=== PATIENT | female | born 1950 | race Asian ===

== ENCOUNTER 2020-12-15 05:36 | Day surgery (SDC) | payer OTHER ==
[2020-12-14 10:16] VITALS: BMI 23.6
[~2020-12-15 05:36] MED LIST: LIDOCAINE HCL 1%, 10 MG/ML (20ML VIAL) SQ ONE
[2020-12-15] MEDS ORDERED: HEPARIN NA (PORCINE) 5,000 UNITS/ML 1ML VIAL ONE (07:32)
[2020-12-15] MEDS ORDERED: LIDOCAINE HCL 1%, 10 MG/ML (20ML VIAL) ONE (07:33)
[2020-12-15] MEDS ORDERED: SODIUM CHLORIDE 0.9% P/F 10 ML VIAL IJ ONE ×3 (07:43→14:00)
[2020-12-15] MEDS ORDERED: MIDAZOLAM HCL 2 MG/2 ML SINGLE DOSE VIAL ONE (07:47)
[2020-12-15] MEDS ORDERED: PROPOFOL 20 ML ONE ×5 (07:48→14:01)
[2020-12-15] MEDS ORDERED: LIDOCAINE HCL/PF 2% SDV 5ML VIAL ONE ×3 (07:50→14:00)
[2020-12-15] MEDS ORDERED: LIDOCAINE HCL 1%, 10 MG/ML (20ML VIAL) SQ ONE (09:34)
[2020-12-15] MEDS ORDERED: ceFAZolin SODIUM 1 GM VIAL ONE ×2 (09:56→14:00)
[2020-12-15] MEDS ORDERED: DEXAMETHASONE SOD PHOSPHATE 4 MG/1 ML VIAL ONE ×2 (09:56→14:00)
[2020-12-15] MEDS ORDERED: oxyCODONE HCL 5 MG TABLET PO PRN (11:33)
[2020-12-15] MEDS ORDERED: ONDANSETRON 4 MG/2 ML VIAL IVPUSH PRN (11:33)
[2020-12-15 15:51] VITALS: BP 133/62; PULSE 90; TEMP 98.2
== END 2020-12-15 13:30 | disposition home or self-care (01) ==
LOC: JASU-SURG 05:36
PROVIDERS: ATTEND Surgery
PROC: 0JH63XZ Insertion of Tunneled Vascular Access Device into Chest Subcutaneous Tissue and Fascia, Percutaneous Approach (ICD-10-PCS; principal; 2020-12-15 07:30)
DX: C50.912 Malignant neoplasm of unspecified site of left female breast (principal); E11.9 Type 2 diabetes mellitus without complications
CPT/HCPCS: 36561; C1788; 71045-TC-FY; 76000-TC-FY; 82962; 94760; J1644

== ENCOUNTER → 2020-12-16 | Day surgery (SDC) | payer OTHER ==
[~2020-12-16] MED LIST changes: +DEXAMETHASONE SODIUM PHOSPHATE 10 MG, ONDANSETRON INJECTION 8 MG, DIPHENHYDRAMINE 50 MG... IVPB ONE; +FAMOTIDINE 20 MG/50 ML IVPB 20 MG/50 ML MG IVPB ONE; -LIDOCAINE HCL 1%, 10 MG/ML (20ML VIAL) SQ ONE; +PACLITAXEL 120 MG in SODIUM CHLORIDE 250 ML IVPB ONE
[2020-12-16 09:47] LABS: BASO % 0.5 % (0-2.0); EOS % 0.6 % (0-4.5); HEMATOCRIT 36.4 % (32.4-45.2); HEMOGLOBIN 12.3 GM/dL (10.7-15.3); LYMPH % 33.9 % (8-40); MCH 29.8 pg (25.7-33.7); MCHC 33.8 g/dl (32.0-36.0); MEAN PLT VOLUME 8.2 fl (7.5-11.1); MONO % 6.7 % (3.8-10.2); NEUT % 58.3 % (42.8-82.8); PLATELET COUNT 280 K/MM3 (134-434); RBC 4.14 M/mm3 (3.60-5.2); RDW 12.6 % (11.6-15.6)
[2020-12-16 10:08] LABS: POTASSIUM 3.4 mmol/L (3.5-5.1)
[2020-12-16 10:10] LABS: ALBUMIN 3.8 g/dl (3.4-5.0); CALCIUM 9.4 mg/dL (8.5-10.1)
[2020-12-16 10:12] LABS: BLOOD UREA NITROGEN 14.2 mg/dL (7-18)
[2020-12-16 10:14] LABS: CREATININE 0.7 mg/dL (0.55-1.3)
[2020-12-16 10:15] LABS: BILIRUBIN,TOTAL 0.6 mg/dL (0.2-1); TOT PROT 7.8 g/dl (6.4-8.2)
== END | disposition home or self-care (01) ==
LOC: JONCCHEMO 07:35
PROVIDERS: ATTEND Internal Medicine Hematology & Oncology
DX: Z53.8 Procedure and treatment not carried out for other reasons (principal)
CPT/HCPCS: 36415; 80053; 85025; 96365

== ENCOUNTER 2020-12-25 04:47 | Day surgery (SDC) | payer OTHER ==
[2020-12-23 13:10] VITALS: BMI 23.0
[2020-12-25] MEDS ORDERED: SODIUM CHLORIDE 500 ML IV ONE (12:10)
[2020-12-25] MEDS ORDERED: ACETAMINOPHEN 325 MG TABLET (FP) ONE (13:29)
[2020-12-25 14:12] VITALS: TEMP 97.8
[2020-12-25 14:22] VITALS: BP 125/66; PULSE 82
== END 2020-12-25 14:15 | disposition home or self-care (01) ==
LOC: JRADIR 04:47
PROVIDERS: ATTEND Internal Medicine Hematology & Oncology
PROC: 0PB63ZX Excision of Left Scapula, Percutaneous Approach, Diagnostic (ICD-10-PCS; principal; 2020-12-25)
DX: C50.919 Malignant neoplasm of unspecified site of unspecified female breast (principal); C79.51 Secondary malignant neoplasm of bone
CPT/HCPCS: 20225; 82962; 88305-TC; 88311-TC; 88341-TC; 88342-TC

== ENCOUNTER 2021-01-15 07:24 | Day surgery (SDC) | payer OTHER ==
[2021-01-15 12:23] LABS: BASO % 0.6 % (0-2.0); EOS % 2.9 % (0-4.5); HEMATOCRIT 38.5 % (32.4-45.2); HEMOGLOBIN 12.9 GM/dL (10.7-15.3); LYMPH % 36.2 % (8-40); MCH 29.9 pg (25.7-33.7); MCHC 33.6 g/dl (32.0-36.0); MEAN CELL VOLUME 89.1 fl (80-96); MEAN PLT VOLUME 8.8 fl (7.5-11.1); MONO % 5.3 % (3.8-10.2); PLATELET COUNT 220 K/MM3 (134-434); RBC 4.32 M/mm3 (3.60-5.2); RDW 12.7 % (11.6-15.6)
[2021-01-15 12:44] LABS: BLOOD UREA NITROGEN 10.2 mg/dL (7-18); CALCIUM 8.9 mg/dL (8.5-10.1)
[2021-01-15 12:45] LABS: ALBUMIN 3.6 g/dl (3.4-5.0)
[2021-01-15 12:49] LABS: BILIRUBIN,TOTAL 0.4 mg/dL (0.2-1); CREATININE 0.6 mg/dL (0.55-1.3); TOT PROT 7.6 g/dl (6.4-8.2)
[2021-01-15] MEDS ORDERED: ONDANSETRON INJECTION 8 MG in SODIUM CHLORIDE 50 ML IVPB ONE (13:30)
[2021-01-15] MEDS ORDERED: PACLITAXEL PROTEIN BOUND IVPB ONE (14:00)
[2021-01-15] MEDS ORDERED: SODIUM CHLORIDE IVPB ONE (14:00)
[2021-01-15 15:51] VITALS: TEMP 98.4
[2021-01-15 15:54] VITALS: BP 151/68; PULSE 96
== END 2021-01-15 14:45 | disposition home or self-care (01) ==
LOC: JONCCHEMO 07:24
PROVIDERS: ATTEND Internal Medicine Hematology & Oncology
DX: Z51.11 Encounter for antineoplastic chemotherapy (principal); C50.912 Malignant neoplasm of unspecified site of left female breast
CPT/HCPCS: 36415; 80053; 85025; 86300; 96375; 96413; J9264

== ENCOUNTER 2021-01-21 07:18 | Day surgery (SDC) | payer OTHER ==
[2021-01-21] MEDS ORDERED: ONDANSETRON INJECTION 8 MG in SODIUM CHLORIDE 50 ML IVPB ONE (09:30)
[2021-01-21] MEDS ORDERED: SODIUM CHLORIDE IVPB ONE (10:00)
[2021-01-21] MEDS ORDERED: PACLITAXEL PROTEIN BOUND IVPB ONE (10:00)
[2021-01-21 10:24] LABS: BASO % 0.5 % (0-2.0); HEMATOCRIT 38.2 % (32.4-45.2); HEMOGLOBIN 12.6 GM/dL (10.7-15.3); LYMPH % 39.8 % (8-40); MCH 29.5 pg (25.7-33.7); MEAN CELL VOLUME 89.4 fl (80-96); MEAN PLT VOLUME 9.2 fl (7.5-11.1); MONO % 2.7 % (3.8-10.2); PLATELET COUNT 206 K/MM3 (134-434); RBC 4.27 M/mm3 (3.60-5.2); RDW 12.9 % (11.6-15.6)
[2021-01-21 10:49] LABS: CALCIUM 8.8 mg/dL (8.5-10.1)
[2021-01-21 10:51] LABS: ALBUMIN 3.6 g/dl (3.4-5.0); BLOOD UREA NITROGEN 13.8 mg/dL (7-18)
[2021-01-21 10:54] LABS: CREATININE 0.7 mg/dL (0.55-1.3)
[2021-01-21 10:56] LABS: TOT PROT 7.6 g/dl (6.4-8.2)
[2021-01-21 10:57] LABS: BILIRUBIN,TOTAL 0.8 mg/dL (0.2-1)
[2021-01-21 16:08] VITALS: TEMP 98
[2021-01-21 16:10] VITALS: BP 145/74; PULSE 91
== END 2021-01-21 14:44 | disposition home or self-care (01) ==
LOC: JONCCHEMO 07:18
PROVIDERS: ATTEND Internal Medicine Hematology & Oncology
DX: Z51.11 Encounter for antineoplastic chemotherapy (principal); C50.912 Malignant neoplasm of unspecified site of left female breast
CPT/HCPCS: 36415; 80053; 85025; 96375; 96413; J9264

== ENCOUNTER 2021-01-28 07:44 | Day surgery (SDC) | payer OTHER ==
[2021-01-28] MEDS ORDERED: ONDANSETRON INJECTION 8 MG in SODIUM CHLORIDE 50 ML IVPB ONE (09:30)
[2021-01-28] MEDS ORDERED: SODIUM CHLORIDE IVPB ONE (10:00)
[2021-01-28] MEDS ORDERED: PACLITAXEL PROTEIN BOUND IVPB ONE (10:00)
[2021-01-28 10:01] LABS: BASO % 0.7 % (0-2.0); EOS % 2.8 % (0-4.5); HEMATOCRIT 37.7 % (32.4-45.2); HEMOGLOBIN 12.9 GM/dL (10.7-15.3); LYMPH % 46.7 % (8-40); MCH 30.1 pg (25.7-33.7); MCHC 34.2 g/dl (32.0-36.0); MEAN CELL VOLUME 87.9 fl (80-96); MEAN PLT VOLUME 8.7 fl (7.5-11.1); MONO % 3.5 % (3.8-10.2); NEUT % 46.3 % (42.8-82.8); PLATELET COUNT 207 K/MM3 (134-434); RBC 4.29 M/mm3 (3.60-5.2); RDW 12.8 % (11.6-15.6); WHITE BLOOD COUNT 6.3 K/mm3 (4.0-10.0)
[2021-01-28 10:16] LABS: CALCIUM 8.6 mg/dL (8.5-10.1)
[2021-01-28 10:17] LABS: ALBUMIN 3.7 g/dl (3.4-5.0); BLOOD UREA NITROGEN 11.8 mg/dL (7-18)
[2021-01-28 10:20] LABS: CREATININE 0.6 mg/dL (0.55-1.3)
[2021-01-28 10:21] LABS: BILIRUBIN,TOTAL 0.4 mg/dL (0.2-1); TOT PROT 7.5 g/dl (6.4-8.2)
[2021-01-28 18:10] VITALS: PULSE 85; TEMP 98.6
[2021-01-28 18:12] VITALS: BP 146/78
== END 2021-01-28 13:45 | disposition home or self-care (01) ==
LOC: JONCCHEMO 07:44
PROVIDERS: ATTEND Internal Medicine Hematology & Oncology
DX: Z51.11 Encounter for antineoplastic chemotherapy (principal); C50.912 Malignant neoplasm of unspecified site of left female breast
CPT/HCPCS: 36415; 80053; 85025; 96375; 96413; J9264

== ENCOUNTER 2021-02-04 07:16 | Day surgery (SDC) | payer OTHER ==
[2021-02-04 11:59] LABS: BASO % 0.7 % (0-2.0); HEMATOCRIT 39.1 % (32.4-45.2); HEMOGLOBIN 13.2 GM/dL (10.7-15.3); LYMPH % 42.3 % (8-40); MCH 29.9 pg (25.7-33.7); MCHC 33.8 g/dl (32.0-36.0); MEAN CELL VOLUME 88.4 fl (80-96); MEAN PLT VOLUME 9.1 fl (7.5-11.1); MONO % 3.8 % (3.8-10.2); NEUT % 51.2 % (42.8-82.8); PLATELET COUNT 240 K/MM3 (134-434); RBC 4.42 M/mm3 (3.60-5.2); RDW 12.8 % (11.6-15.6); WHITE BLOOD COUNT 6.6 K/mm3 (4.0-10.0)
[2021-02-04 12:24] LABS: CALCIUM 8.8 mg/dL (8.5-10.1)
[2021-02-04 12:25] LABS: ALBUMIN 4.1 g/dl (3.4-5.0); BLOOD UREA NITROGEN 12.8 mg/dL (7-18)
[2021-02-04 12:27] LABS: CREATININE 0.6 mg/dL (0.55-1.3)
[2021-02-04 12:29] LABS: BILIRUBIN,TOTAL 0.4 mg/dL (0.2-1)
[2021-02-04] MEDS ORDERED: ONDANSETRON INJECTION 8 MG in SODIUM CHLORIDE 50 ML IVPB ONE (13:00)
[2021-02-04] MEDS ORDERED: PACLITAXEL PROTEIN BOUND IVPB ONE (13:30)
[2021-02-04] MEDS ORDERED: SODIUM CHLORIDE IVPB ONE (13:30)
[2021-02-04 13:38] VITALS: TEMP 98.3
[2021-02-04] MEDS ORDERED: PORTA CATH FLUSH 10 ML IVPUSH ONE (13:42)
[2021-02-04 17:41] VITALS: BP 130/70; PULSE 85
== END 2021-02-04 14:10 | disposition home or self-care (01) ==
LOC: JONCCHEMO 07:16
PROVIDERS: ATTEND Internal Medicine Hematology & Oncology
DX: Z51.11 Encounter for antineoplastic chemotherapy (principal); C50.912 Malignant neoplasm of unspecified site of left female breast
CPT/HCPCS: 36415; 80053; 85025; 96375; 96413; J9264

== ENCOUNTER 2021-02-11 07:21 | Day surgery (SDC) | payer OTHER ==
[2021-02-11] MEDS ORDERED: ONDANSETRON INJECTION 8 MG in SODIUM CHLORIDE 50 ML IVPB ONE (10:00)
[2021-02-11] MEDS ORDERED: PACLITAXEL PROTEIN BOUND IVPB ONE (10:30)
[2021-02-11] MEDS ORDERED: SODIUM CHLORIDE IVPB ONE (10:30)
[2021-02-11 11:06] LABS: BASO % 0.5 % (0-2.0); EOS % 1.8 % (0-4.5); HEMATOCRIT 37.7 % (32.4-45.2); HEMOGLOBIN 12.6 GM/dL (10.7-15.3); LYMPH % 25.5 % (8-40); MCH 29.5 pg (25.7-33.7); MCHC 33.3 g/dl (32.0-36.0); MEAN CELL VOLUME 88.6 fl (80-96); MEAN PLT VOLUME 9.2 fl (7.5-11.1); MONO % 5.3 % (3.8-10.2); NEUT % 66.9 % (42.8-82.8); PLATELET COUNT 219 K/MM3 (134-434); RBC 4.25 M/mm3 (3.60-5.2); RDW 12.9 % (11.6-15.6); WHITE BLOOD COUNT 8.6 K/mm3 (4.0-10.0)
[2021-02-11 11:30] LABS: CALCIUM 8.6 mg/dL (8.5-10.1)
[2021-02-11 11:31] LABS: ALBUMIN 3.7 g/dl (3.4-5.0); BLOOD UREA NITROGEN 10.2 mg/dL (7-18)
[2021-02-11 11:34] LABS: CREATININE 0.7 mg/dL (0.55-1.3)
[2021-02-11 11:36] LABS: BILIRUBIN,TOTAL 0.4 mg/dL (0.2-1); TOT PROT 7.5 g/dl (6.4-8.2)
[2021-02-11 15:01] VITALS: TEMP 98.2
[2021-02-11 15:05] VITALS: BP 141/72; PULSE 101
== END 2021-02-11 13:07 | disposition home or self-care (01) ==
LOC: JONCCHEMO 07:21
PROVIDERS: ATTEND Internal Medicine Hematology & Oncology
DX: Z51.11 Encounter for antineoplastic chemotherapy (principal); C50.912 Malignant neoplasm of unspecified site of left female breast
CPT/HCPCS: 36415; 80053; 85025; 86300; 96375; 96413; J9264

== ENCOUNTER 2021-02-18 09:31 | Day surgery (SDC) | payer OTHER ==
[2021-02-18] MEDS ORDERED: ONDANSETRON INJECTION 8 MG in SODIUM CHLORIDE 50 ML IVPB ONE (10:00)
[2021-02-18] MEDS ORDERED: SODIUM CHLORIDE IVPB ONE (10:30)
[2021-02-18] MEDS ORDERED: PACLITAXEL PROTEIN BOUND IVPB ONE (10:30)
[2021-02-18 13:05] LABS: BASO % 0.6 % (0-2.0); EOS % 2.4 % (0-4.5); HEMATOCRIT 37.3 % (32.4-45.2); HEMOGLOBIN 12.4 GM/dL (10.7-15.3); MCH 29.3 pg (25.7-33.7); MCHC 33.3 g/dl (32.0-36.0); MEAN CELL VOLUME 88.1 fl (80-96); MONO % 4.3 % (3.8-10.2); NEUT % 56.7 % (42.8-82.8); PLATELET COUNT 201 K/MM3 (134-434); RBC 4.23 M/mm3 (3.60-5.2); RDW 12.9 % (11.6-15.6); WHITE BLOOD COUNT 7.5 K/mm3 (4.0-10.0)
[2021-02-18 13:25] LABS: CALCIUM 8.8 mg/dL (8.5-10.1)
[2021-02-18 13:26] LABS: ALBUMIN 3.7 g/dl (3.4-5.0); BLOOD UREA NITROGEN 13.7 mg/dL (7-18)
[2021-02-18 13:29] LABS: CREATININE 0.6 mg/dL (0.55-1.3)
[2021-02-18 13:31] LABS: BILIRUBIN,TOTAL 0.4 mg/dL (0.2-1); TOT PROT 7.6 g/dl (6.4-8.2)
[2021-02-18 15:46] VITALS: PULSE 91; TEMP 98.3
[2021-02-18 15:57] VITALS: BP 131/72
== END 2021-02-18 15:15 | disposition home or self-care (01) ==
LOC: JONCCHEMO 09:31
PROVIDERS: ATTEND Internal Medicine Hematology & Oncology
DX: Z51.11 Encounter for antineoplastic chemotherapy (principal); C50.912 Malignant neoplasm of unspecified site of left female breast
CPT/HCPCS: 36415; 80053; 85025; 96375; 96413; J9264

== ENCOUNTER 2021-02-25 08:39 | Day surgery (SDC) | payer OTHER ==
[2021-02-25] MEDS ORDERED: ONDANSETRON INJECTION 8 MG in SODIUM CHLORIDE 50 ML IVPB ONE (10:00)
[2021-02-25] MEDS ORDERED: SODIUM CHLORIDE IVPB ONE (10:30)
[2021-02-25] MEDS ORDERED: PACLITAXEL PROTEIN BOUND IVPB ONE (10:30)
[2021-02-25 11:09] LABS: BASO % 0.5 % (0-2.0); EOS % 1.6 % (0-4.5); HEMATOCRIT 37.3 % (32.4-45.2); HEMOGLOBIN 12.5 GM/dL (10.7-15.3); LYMPH % 30.9 % (8-40); MCH 29.3 pg (25.7-33.7); MCHC 33.4 g/dl (32.0-36.0); MEAN CELL VOLUME 87.8 fl (80-96); MEAN PLT VOLUME 8.9 fl (7.5-11.1); MONO % 3.9 % (3.8-10.2); NEUT % 63.1 % (42.8-82.8); PLATELET COUNT 201 K/MM3 (134-434); RBC 4.25 M/mm3 (3.60-5.2); RDW 13.2 % (11.6-15.6)
[2021-02-25 11:30] LABS: CALCIUM 8.6 mg/dL (8.5-10.1)
[2021-02-25 11:31] LABS: ALBUMIN 3.8 g/dl (3.4-5.0); BLOOD UREA NITROGEN 11.2 mg/dL (7-18)
[2021-02-25 11:34] LABS: CREATININE 0.6 mg/dL (0.55-1.3)
[2021-02-25 11:35] LABS: BILIRUBIN,TOTAL 0.6 mg/dL (0.2-1)
[2021-02-25 11:36] LABS: TOT PROT 7.5 g/dl (6.4-8.2)
[2021-02-25 17:25] VITALS: TEMP 98.2
[2021-02-25 17:27] VITALS: BP 160/66; PULSE 96
== END 2021-02-25 13:20 | disposition home or self-care (01) ==
LOC: JONCCHEMO 08:39
PROVIDERS: ATTEND Internal Medicine Hematology & Oncology
DX: Z51.11 Encounter for antineoplastic chemotherapy (principal); C50.912 Malignant neoplasm of unspecified site of left female breast
CPT/HCPCS: 36415; 80053; 85025; 96375; 96413; J9264

== ENCOUNTER 2021-03-04 07:35 | Day surgery (SDC) | payer OTHER ==
[2021-03-04] MEDS ORDERED: ONDANSETRON INJECTION 8 MG in SODIUM CHLORIDE 50 ML IVPB ONE (09:30)
[2021-03-04] MEDS ORDERED: PACLITAXEL PROTEIN BOUND IVPB ONE (10:00)
[2021-03-04] MEDS ORDERED: SODIUM CHLORIDE IVPB ONE (10:00)
[2021-03-04 12:32] LABS: BASO % 0.5 % (0-2.0); EOS % 2.4 % (0-4.5); HEMATOCRIT 37.9 % (32.4-45.2); HEMOGLOBIN 13.1 GM/dL (10.7-15.3); LYMPH % 36.9 % (8-40); MCH 29.9 pg (25.7-33.7); MCHC 34.5 g/dl (32.0-36.0); MEAN CELL VOLUME 86.6 fl (80-96); MEAN PLT VOLUME 8.3 fl (7.5-11.1); MONO % 4.1 % (3.8-10.2); NEUT % 56.1 % (42.8-82.8); PLATELET COUNT 227 K/MM3 (134-434); RBC 4.37 M/mm3 (3.60-5.2); RDW 12.8 % (11.6-15.6); WHITE BLOOD COUNT 9.3 K/mm3 (4.0-10.0)
[2021-03-04 12:54] LABS: BLOOD UREA NITROGEN 9.5 mg/dL (7-18); CALCIUM 9.6 mg/dL (8.5-10.1)
[2021-03-04 12:57] LABS: CREATININE 0.6 mg/dL (0.55-1.3)
[2021-03-04 12:59] LABS: BILIRUBIN,TOTAL 0.4 mg/dL (0.2-1)
[2021-03-04 16:04] VITALS: PULSE 80; TEMP 98.2
[2021-03-04] MEDS ORDERED: PORTA CATH FLUSH 10 ML IVPUSH ONE (16:10)
[2021-03-04 16:11] VITALS: BP 141/72
== END 2021-03-04 15:10 | disposition home or self-care (01) ==
LOC: JONCCHEMO 07:35
PROVIDERS: ATTEND Internal Medicine Hematology & Oncology
DX: Z51.11 Encounter for antineoplastic chemotherapy (principal); C50.912 Malignant neoplasm of unspecified site of left female breast
CPT/HCPCS: 36415; 80053; 85025; 96375; 96413; J9264

== ENCOUNTER 2021-03-18 07:32 | Day surgery (SDC) | payer OTHER ==
[2021-03-18 10:09] LABS: BASO % 0.6 % (0-2.0); EOS % 4.1 % (0-4.5); HEMOGLOBIN 12.7 GM/dL (10.7-15.3); LYMPH % 35.5 % (8-40); MCH 28.6 pg (25.7-33.7); MCHC 33.4 g/dl (32.0-36.0); MEAN CELL VOLUME 85.7 fl (80-96); NEUT % 53.8 % (42.8-82.8); PLATELET COUNT 219 10^3/uL (134-434); RBC 4.44 M/mm3 (3.60-5.2); WHITE BLOOD COUNT 8.2 K/mm3 (4.0-10.0)
[2021-03-18 10:23] LABS: CALCIUM 8.5 mg/dL (8.5-10.1)
[2021-03-18 10:25] LABS: ALBUMIN 3.6 g/dl (3.4-5.0); BLOOD UREA NITROGEN 10.2 mg/dL (7-18)
[2021-03-18 10:28] LABS: CREATININE 0.6 mg/dL (0.55-1.3)
[2021-03-18 10:30] LABS: BILIRUBIN,TOTAL 0.3 mg/dL (0.2-1); TOT PROT 7.4 g/dl (6.4-8.2)
[2021-03-18] MEDS ORDERED: ONDANSETRON INJECTION 8 MG in SODIUM CHLORIDE 50 ML IVPB ONE (11:15)
[2021-03-18] MEDS ORDERED: SODIUM CHLORIDE IVPB ONE (11:30)
[2021-03-18] MEDS ORDERED: PACLITAXEL PROTEIN BOUND IVPB ONE (11:30)
[2021-03-18 16:20] VITALS: TEMP 98.2
[2021-03-18 16:26] VITALS: BP 147/72; PULSE 76
== END 2021-03-18 13:00 | disposition home or self-care (01) ==
LOC: JONCCHEMO 07:32
PROVIDERS: ATTEND Internal Medicine Hematology & Oncology
DX: Z51.11 Encounter for antineoplastic chemotherapy (principal); C50.912 Malignant neoplasm of unspecified site of left female breast
CPT/HCPCS: 36415; 80053; 85025; 96375; 96413; J9264

== ENCOUNTER 2021-03-25 07:11 | Day surgery (SDC) | payer OTHER ==
[2021-03-25 10:57] LABS: BASO % 0.8 % (0-2.0); EOS % 3.4 % (0-4.5); HEMATOCRIT 37.7 % (32.4-45.2); HEMOGLOBIN 12.7 GM/dL (10.7-15.3); LYMPH % 36.2 % (8-40); MCH 28.6 pg (25.7-33.7); MCHC 33.7 g/dl (32.0-36.0); MEAN CELL VOLUME 84.7 fl (80-96); MEAN PLT VOLUME 8.5 fl (7.5-11.1); MONO % 4.3 % (3.8-10.2); NEUT % 55.3 % (42.8-82.8); PLATELET COUNT 207 10^3/uL (134-434); RBC 4.45 M/mm3 (3.60-5.2); RDW 13.5 % (11.6-15.6); WHITE BLOOD COUNT 7.9 K/mm3 (4.0-10.0)
[2021-03-25] MEDS ORDERED: ONDANSETRON INJECTION 8 MG in SODIUM CHLORIDE 50 ML IVPB ONE (11:15)
[2021-03-25 11:25] LABS: CALCIUM 9.1 mg/dL (8.5-10.1)
[2021-03-25 11:26] LABS: BLOOD UREA NITROGEN 11.7 mg/dL (7-18)
[2021-03-25 11:29] LABS: CREATININE 0.6 mg/dL (0.55-1.3)
[2021-03-25] MEDS ORDERED: SODIUM CHLORIDE IVPB ONE (11:30)
[2021-03-25] MEDS ORDERED: PACLITAXEL PROTEIN BOUND IVPB ONE (11:30)
[2021-03-25 11:31] LABS: BILIRUBIN,TOTAL 0.4 mg/dL (0.2-1); TOT PROT 7.9 g/dl (6.4-8.2)
[2021-03-25 17:06] VITALS: TEMP 98.2
[2021-03-25 17:09] VITALS: BP 137/68; PULSE 79
== END 2021-03-25 13:20 | disposition home or self-care (01) ==
LOC: JONCCHEMO 07:11
PROVIDERS: ATTEND Internal Medicine Hematology & Oncology
DX: Z51.11 Encounter for antineoplastic chemotherapy (principal); C50.912 Malignant neoplasm of unspecified site of left female breast
CPT/HCPCS: 36415; 80053; 83036; 85025; 96375; 96413; J9264

== ENCOUNTER → 2021-04-01 | Day surgery (SDC) | payer OTHER ==
[~2021-04-01] MED LIST changes: -DEXAMETHASONE SODIUM PHOSPHATE 10 MG, ONDANSETRON INJECTION 8 MG, DIPHENHYDRAMINE 50 MG... IVPB ONE; -FAMOTIDINE 20 MG/50 ML IVPB 20 MG/50 ML MG IVPB ONE; +ONDANSETRON INJECTION 8 MG in SODIUM CHLORIDE 50 ML IVPB ONE; -PACLITAXEL 120 MG in SODIUM CHLORIDE 250 ML IVPB ONE; +PACLITAXEL PROTEIN BOUND IVPB ONE; +SODIUM CHLORIDE IVPB ONE
[2021-04-01 10:40] LABS: BASO % 0.5 % (0-2.0); EOS % 3.8 % (0-4.5); HEMATOCRIT 38.7 % (32.4-45.2); HEMOGLOBIN 12.6 GM/dL (10.7-15.3); LYMPH % 38.1 % (8-40); MCH 28.2 pg (25.7-33.7); MCHC 32.6 g/dl (32.0-36.0); MEAN CELL VOLUME 86.5 fl (80-96); MEAN PLT VOLUME 8.5 fl (7.5-11.1); MONO % 4.6 % (3.8-10.2); PLATELET COUNT 206 10^3/uL (134-434); RBC 4.47 M/mm3 (3.60-5.2); RDW 13.3 % (11.6-15.6); WHITE BLOOD COUNT 7.1 K/mm3 (4.0-10.0)
[2021-04-01 10:47] LABS: INR 1.01 (0.83-1.09); PROTHROMBIN TIME (PATIENT) 12.2 SEC (9.7-13.0)
[2021-04-01 11:08] LABS: ALBUMIN 3.7 g/dl (3.4-5.0); BLOOD UREA NITROGEN 10.8 mg/dL (7-18); CALCIUM 8.9 mg/dL (8.5-10.1)
[2021-04-01 11:13] LABS: BILIRUBIN,TOTAL 0.4 mg/dL (0.2-1); TOT PROT 7.6 g/dl (6.4-8.2)
[2021-04-01 11:30] LABS: CREATININE 0.6 mg/dL (0.55-1.3)
== END | disposition home or self-care (01) ==
LOC: JONCCHEMO 06:40
PROVIDERS: ATTEND Internal Medicine Hematology & Oncology
DX: Z53.8 Procedure and treatment not carried out for other reasons (principal)
CPT/HCPCS: 36415; 74019-TC-FY; 76700-TC; 80053; 85025; 85610; 85730; 86300

== ENCOUNTER → 2021-04-08 | Day surgery (SDC) | payer OTHER ==
[2021-04-08 09:51] LABS: BASO % 0.5 % (0-2.0); EOS % 3.5 % (0-4.5); HEMATOCRIT 39.4 % (32.4-45.2); HEMOGLOBIN 12.8 GM/dL (10.7-15.3); LYMPH % 34.3 % (8-40); MCH 28.1 pg (25.7-33.7); MCHC 32.6 g/dl (32.0-36.0); MEAN CELL VOLUME 86.2 fl (80-96); NEUT % 54.7 % (42.8-82.8); PLATELET COUNT 202 10^3/uL (134-434); RBC 4.56 M/mm3 (3.60-5.2); RDW 13.6 % (11.6-15.6)
[2021-04-08 10:18] LABS: ALBUMIN 3.8 g/dl (3.4-5.0); CALCIUM 8.7 mg/dL (8.5-10.1)
[2021-04-08 10:19] LABS: BLOOD UREA NITROGEN 9.4 mg/dL (7-18)
[2021-04-08 10:21] LABS: CREATININE 0.7 mg/dL (0.55-1.3)
[2021-04-08 10:23] LABS: TOT PROT 7.6 g/dl (6.4-8.2)
[2021-04-08 10:25] LABS: BILIRUBIN,TOTAL 0.4 mg/dL (0.2-1)
== END | disposition home or self-care (01) ==
LOC: JONCCHEMO 05:15
PROVIDERS: ATTEND Internal Medicine Hematology & Oncology
DX: Z53.8 Procedure and treatment not carried out for other reasons (principal)
CPT/HCPCS: 36415; 74019-TC-FY; 76642-TC-RT; 80053; 85025; 96365

== ENCOUNTER → 2021-04-15 | Day surgery (SDC) | payer OTHER ==
[2021-04-15 09:09] LABS: BASO % 0.6 % (0-2.0); HEMATOCRIT 38.6 % (32.4-45.2); LYMPH % 35.3 % (8-40); MCH 28.6 pg (25.7-33.7); MCHC 33.7 g/dl (32.0-36.0); MEAN CELL VOLUME 84.8 fl (80-96); MEAN PLT VOLUME 8.2 fl (7.5-11.1); MONO % 6.4 % (3.8-10.2); NEUT % 53.7 % (42.8-82.8); PLATELET COUNT 204 10^3/uL (134-434); RBC 4.56 M/mm3 (3.60-5.2); RDW 13.6 % (11.6-15.6); WHITE BLOOD COUNT 8.3 K/mm3 (4.0-10.0)
[2021-04-15 09:29] LABS: CALCIUM 8.8 mg/dL (8.5-10.1)
[2021-04-15 09:30] LABS: ALBUMIN 3.7 g/dl (3.4-5.0); BLOOD UREA NITROGEN 9.3 mg/dL (7-18)
[2021-04-15 09:33] LABS: CREATININE 0.7 mg/dL (0.55-1.3)
[2021-04-15 09:35] LABS: BILIRUBIN,TOTAL 0.4 mg/dL (0.2-1); TOT PROT 7.6 g/dl (6.4-8.2)
== END | disposition home or self-care (01) ==
LOC: JONCCHEMO 06:57
PROVIDERS: ATTEND Internal Medicine Hematology & Oncology
DX: Z53.8 Procedure and treatment not carried out for other reasons (principal)
CPT/HCPCS: 36415; 74019-TC-FY; 80053; 85025; 96365

== ENCOUNTER → 2021-04-29 | Day surgery (SDC) | payer OTHER ==
[2021-04-29 10:29] LABS: BASO % 0.5 % (0-2.0); EOS % 3.2 % (0-4.5); HEMATOCRIT 37.7 % (32.4-45.2); HEMOGLOBIN 12.8 GM/dL (10.7-15.3); LYMPH % 33.6 % (8-40); MCH 29.1 pg (25.7-33.7); MEAN CELL VOLUME 85.6 fl (80-96); MEAN PLT VOLUME 8.1 fl (7.5-11.1); MONO % 5.2 % (3.8-10.2); NEUT % 57.5 % (42.8-82.8); PLATELET COUNT 202 10^3/uL (134-434); WHITE BLOOD COUNT 6.6 K/mm3 (4.0-10.0)
[2021-04-29 10:49] LABS: CALCIUM 8.6 mg/dL (8.5-10.1)
[2021-04-29 10:50] LABS: ALBUMIN 3.6 g/dl (3.4-5.0); MAGNESIUM 1.7 mg/dL (1.8-2.4)
[2021-04-29 10:52] LABS: BILIRUBIN,DIRECT 0.1 mg/dL (0.0-0.2); CREATININE 0.7 mg/dL (0.55-1.3); URIC ACID 4.9 mg/dL (2.6-7.2)
[2021-04-29 10:54] LABS: BILIRUBIN,TOTAL 0.4 mg/dL (0.2-1); TOT PROT 7.6 g/dl (6.4-8.2)
== END | disposition home or self-care (01) ==
LOC: JONCCHEMO 10:00
PROVIDERS: ATTEND Internal Medicine Hematology & Oncology
DX: Z53.8 Procedure and treatment not carried out for other reasons (principal)
CPT/HCPCS: 36415; 80048; 80076; 83735; 84550; 85025

== ENCOUNTER → 2022-01-21 | Day surgery (SDC) | payer OTHER ==
[2022-01-21 10:22] LABS: INR 1.07 (0.83-1.09); PROTHROMBIN TIME (PATIENT) 12.3 SEC (9.7-13.0)
[2022-01-21 12:05] VITALS: BP 138/72; PULSE 65
== END | disposition home or self-care (01) ==
LOC: JRADIR 09:35
PROVIDERS: ATTEND Internal Medicine Hematology & Oncology
PROC: 0JPT0WZ Removal of Totally Implantable Vascular Access Device from Trunk Subcutaneous Tissue and Fascia, Open Approach (ICD-10-PCS; principal; 2022-01-21)
DX: Z45.2 Encounter for adjustment and management of vascular access device (principal)
CPT/HCPCS: 36415; 36590; 77001-TC-FY; 85610

== ENCOUNTER 2022-10-19 08:29 | Day surgery (SDC) | payer OTHER ==
[2022-10-19] MEDS ORDERED: FULVESTRANT 250 MG/5 ML SYRINGE IM ONE (10:00)
[2022-10-19 14:48] VITALS: BP 171/69; PULSE 82; RESP 20; TEMP 98
== END 2022-10-19 09:40 | disposition home or self-care (01) ==
LOC: JONCCHEMO 08:29
PROVIDERS: ATTEND Specialist
DX: Z51.11 Encounter for antineoplastic chemotherapy (principal); C50.912 Malignant neoplasm of unspecified site of left female breast
CPT/HCPCS: 96402; J9395

== ENCOUNTER 2022-11-02 09:54 | Day surgery (SDC) | payer OTHER ==
[2022-11-02] MEDS ORDERED: FULVESTRANT 250 MG/5 ML SYRINGE IM ONE (10:30)
[2022-11-02 14:47] VITALS: BP 133/66; PULSE 75; RESP 20; TEMP 97.6
== END 2022-11-02 11:05 | disposition home or self-care (01) ==
LOC: JONCCHEMO 09:54
PROVIDERS: ATTEND Specialist
DX: Z51.11 Encounter for antineoplastic chemotherapy (principal); C50.911 Malignant neoplasm of unspecified site of right female breast
CPT/HCPCS: 96402; J9395

== ENCOUNTER 2022-11-16 09:14 | Day surgery (SDC) | payer OTHER ==
[2022-11-16] MEDS ORDERED: SODIUM CHLORIDE 1,000 ML IV ONE (10:00)
[2022-11-16] MEDS ORDERED: FULVESTRANT 250 MG/5 ML SYRINGE IM ONE (10:00)
[2022-11-16 14:44] VITALS: BP 167/53; PULSE 78; RESP 20; TEMP 97.6
== END 2022-11-16 12:50 | disposition home or self-care (01) ==
LOC: JONCCHEMO 09:14
PROVIDERS: ATTEND Specialist
DX: Z51.11 Encounter for antineoplastic chemotherapy (principal)
CPT/HCPCS: 96401; J9395

== ENCOUNTER 2022-12-14 10:10 | Day surgery (SDC) | payer OTHER ==
[2022-12-14] MEDS ORDERED: FULVESTRANT 250 MG/5 ML SYRINGE IM ONE (11:00)
[2022-12-14 17:00] VITALS: BP 156/58; PULSE 95; RESP 20; TEMP 98.2
== END 2022-12-14 11:30 | disposition home or self-care (01) ==
LOC: JONCCHEMO 10:10
PROVIDERS: ATTEND Specialist
DX: Z51.11 Encounter for antineoplastic chemotherapy (principal); C50.912 Malignant neoplasm of unspecified site of left female breast; Z17.0 Estrogen receptor positive status [ER+]
CPT/HCPCS: 96402; J9395

== ENCOUNTER 2023-01-04 10:31 | Day surgery (SDC) | payer OTHER ==
[2023-01-04] MEDS ORDERED: FULVESTRANT 250 MG/5 ML SYRINGE IM ONE (11:00)
[2023-01-04 11:19] VITALS: BP 125/75; PULSE 88; RESP 20; TEMP 98.2
== END 2023-01-04 11:45 | disposition home or self-care (01) ==
LOC: JONCCHEMO 10:31
PROVIDERS: ATTEND Specialist
DX: Z51.11 Encounter for antineoplastic chemotherapy (principal); C50.912 Malignant neoplasm of unspecified site of left female breast; Z17.1 Estrogen receptor negative status [ER-]
CPT/HCPCS: 96402; J9395